=== PATIENT | male | born 1960 | race Caucasian/White ===

== ENCOUNTER 2016-11-30 17:09 | Emergency (ER) | payer BC, MEDICAID, OTHER ==
[~2016-11-30] VITALS: Ht 172.7 cm; Wt 85.0 kg
[2016-11-30 17:17] VITALS: Ht 172.7 cm; Wt 85.0 kg
[2016-11-30] MEDS ORDERED: IBUPROFEN 800 MG TAB PO ONE (18:30)
[2016-11-30] MEDS ORDERED: IBUP800T25 PO (18:41)
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
[2016-11-30 19:14] VITALS: BP 150/80; PULSE 94; RESP 18; TEMP 97.8
== END 2016-11-30 19:14 | disposition home or self-care (01) ==
LOC: FTE 17:09
DX: S70.01XA Contusion of right hip, initial encounter (principal); V49.40XA Driver injured in collision with unspecified motor vehicles in traffic accident, initial encounter
CPT/HCPCS: 72170; Z7502; Z7610

== ENCOUNTER 2018-06-03 23:33 | Emergency (ER) | payer MEDICAID ==
[~2018-06-03] VITALS: Ht 175.3 cm; Wt 86.0 kg
[~2018-06-03 23:33] MED LIST: IBUP800T48 PO
[2018-06-03 23:45] VITALS: Ht 175.3 cm; Wt 86.0 kg
--- NOTE | 2018-06-04 00:54 | ERD ---
ER Documentation Chief Complaint Chief Complaint left foot pain x 2 weeks, denies trauma, hx of dm, also c/o anxiety HPI This is a 57-year-old male who presents to emergency department with complaints left foot pain/left calf tenderness, anxiety attack. Denies headache, dizziness, neck pain, neck stiffness, difficulty fungal difficult breathing lying flat, shoulder pain, chest pain, back pain, abdominal pain, nausea, vomiting, constipation, diarrhea, urinary symptoms, loss of bowel bladder control, trauma, injury, falls, recent travel, recent long travel, recent major surgery in the last 3 weeks, recent antibiotic use the last 3 months, fever, chills, seizures. ROS All systems reviewed and are negative except as per history of present illness. Medications Home Meds Active Scripts Omeprazole* (Omeprazole*) 40 Mg Capsule.dr, 40 MG PO DAILY, #30 CAP Prov:PASILABAN,RADHAAR F 06/04/18 Ibuprofen* (Motrin*) 800 Mg Tab, 800 MG PO Q6H PRN for PAIN AND OR ELEVATED TEMP, #30 TAB Prov:PASILABAN,KLAR F 06/04/18 Hydroxyzine Hcl* (Hydroxyzine Hcl*) 50 Mg Tablet, 50 MG PO Q6H PRN for ANXIETY, #30 TAB Prov:PASILABAN,KLAR F 06/04/18 Ibuprofen* (Motrin*) 800 Mg Tab, 800 MG PO Q6H PRN for PAIN AND OR ELEVATED TEMP, #30 TAB Prov:MELANY JOYCE MD 11/30/16 Allergies Allergies: Coded Allergies: No Known Drug Allergies (Verified Allergy, Unknown, 06/03/18) PMhx/Soc Hx Alcohol Use: No Hx Substance Use: No Hx Tobacco Use: No Physical Exam Vitals Physical Exam Const: No acute distress Head: Atraumatic Eyes: Normal Conjunctiva ENT: Normal External Ears, Nose and Mouth. Neck: Full range of motion. No meningismus. Resp: Clear to auscultation bilaterally Cardio: Regular rate and rhythm, no murmurs Abd: Soft, non tender, non distended. Normal bowel sounds Skin: No petechiae or rashes Back: No midline or flank tenderness Ext: No cyanosis, or edema. Left calf is tenderness to palpation without discoloration and without deformity and swelling. Plantar area of the left foot has tenderness to palpation. Left ankle is unremarkable. Left knee is unremarkable. Able to bear weight on left lower extremity. Bilateral hips are stable and unremarkable. Right lower extremity is unremarkable. No neurovascular deficits. Ambulatory with steady gait. Neur: Awake and alert. No neurological deficits. Psych: Normal Mood and Affect Results 24 hrs Laboratory Tests Test 06/04/18 02:10 White Blood Count 6.3 10^3/ul Red Blood Count 4.77 10^6/ul Hemoglobin 13.5 g/dl Hematocrit 41.9 % Mean Corpuscular Volume 87.8 fl Mean Corpuscular Hemoglobin 28.3 pg Mean Corpuscular Hemoglobin Concent 32.2 g/dl Red Cell Distribution Width 13.1 % Platelet Count 290 10^3/UL Mean Platelet Volume 10.0 fl Immature Granulocytes % 0.300 % Neutrophils % 51.0 % Lymphocytes % 34.9 % Monocytes % 9.7 % Eosinophils % 3.3 % Basophils % 0.8 % Nucleated Red Blood Cells % 0.0 /100WBC Immature Granulocytes # 0.020 10^3/ul Neutrophils # 3.2 10^3/ul Lymphocytes # 2.2 10^3/ul Monocytes # 0.6 10^3/ul Eosinophils # 0.2 10^3/ul Basophils # 0.1 10^3/ul Nucleated Red Blood Cells # 0.0 10^3/ul Prothrombin Time 12.5 Sec Prothrombin Time Ratio 1.0 INR International Normalized Ratio 0.92 Activated Partial Thromboplast Time 24.1 Sec Sodium Level 141 mmol/L Potassium Level 4.9 mmol/L Chloride Level 105 mmol/L Carbon Dioxide Level 28 mmol/L Anion Gap 8 Blood Urea Nitrogen 21 mg/dl Creatinine 0.96 mg/dl Est Glomerular Filtrat Rate mL/min > 60 mL/min Glucose Level 205 mg/dl Calcium Level 9.9 mg/dl Total Bilirubin 0.2 mg/dl Direct Bilirubin 0.00 mg/dl Indirect Bilirubin 0.2 mg/dl Aspartate Amino Transf (AST/SGOT) 25 IU/L Alanine Aminotransferase (ALT/SGPT) 25 IU/L Alkaline Phosphatase 66 IU/L Troponin I < 0.012 ng/ml Total Protein 7.3 g/dl Albumin 4.2 g/dl Globulin 3.10 g/dl Albumin/Globulin Ratio 1.35 Current Medications Medications Dose Sig/Sinai Start Time Status Last (Trade) Ordered Route PRN Stop Time Admin Dose Reason Admin Lorazepam 1 mg ONCE ONCE 06/04/18 DC 06/04/18 (Ativan) PO 01:00 01:23 06/04/18 01:01 Aspirin 325 mg ONCE ONCE 06/04/18 DC 06/04/18 (Aspirin) PO 01:30 02:14 06/04/18 01:31 Procedures/MDM Diagnostic tests: EKG: Normal sinus rhythm with a ventricular rate of 62 bpm. No STEMI. Read by supervising physician. X-ray of the left foot: No acute fracture. Venous Doppler ultrasound of the left lower extremity: No evidence of deep vein thrombosis within the left lower extremity. Chest x-ray: No acute cardiopulmonary process identified. Blood works: Reviewed. Treatment: Ativan. Aspirin. Re-evaluation: Denies chest pain.Denies calf pain, foot pain. No neurovascular deficit. Ambulatory with steady gait. Differential diagnosis I have low suspicion for pulmonary embolism, DVT, cellulitis, osteomyelitis. Final diagnosis: Anxiety attack. Foot pain. Prescription: Hydroxyzine. Follow-up with PCP in the next 24-48 hours. Come back here in the emergency department for any new symptoms or any worsening symptoms. All questions and concerns were answered. Patient and family members verbalized understanding and agreed with plan of care. Hemodynamically stable on discharge. Departure Diagnosis: Primary Impression: Foot pain Additional Impressions: Anxiety Plantar fasciitis Condition: Stable Additional Instructions: Follow-up with PCP in the next 24-48 hours. PCP to refer patient to graphic manager in the next 3-4 days. Come back here in the emergency department for any new symptoms or any worsening symptoms. LEWIS HARVEY Jun 04, 2018 00:54
[2018-06-04] MEDS ORDERED: LORAZEPAM 1 MG TAB PO ONE (01:00)
[2018-06-04] MEDS ORDERED: ASPIRIN 325 MG TAB PO ONE (01:30)
[2018-06-04] MEDS ORDERED: HYDR50TA15 PO (03:34)
[2018-06-04] MEDS ORDERED: IBUP800T48 PO (03:35)
[2018-06-04] MEDS ORDERED: OMEP40CA6 PO (03:35)
[2018-06-04 03:48] VITALS: BP 125/65; PULSE 66; RESP 20
== END 2018-06-04 03:48 | disposition home or self-care (01) ==
LOC: FTE 23:33
DX: M79.672 Pain in left foot (principal); F41.9 Anxiety disorder, unspecified; M72.2 Plantar fascial fibromatosis; E11.9 Type 2 diabetes mellitus without complications
CPT/HCPCS: 71046; 73630; 80053; 84484; 85025; 85610; 85730; 93005; 93971; Z7610